=== PATIENT | male | born 1995 | race African-American/Black ===

== ENCOUNTER 2021-10-29 14:24 | Emergency (ER) | payer OTHER ==
[~2021-10-29] VITALS: Ht 161.3 cm; Wt 86.2 kg
[2021-10-29 14:30] VITALS: TEMP 97.8
[2021-10-29 15:45] VITALS: BP 122/72
== END 2021-10-29 16:15 | disposition home or self-care (01) ==
LOC: ED 14:24
DX: N30.80 Other cystitis without hematuria (principal)
CPT/HCPCS: 81000; 99283